=== PATIENT | male | born 1950 | race Caucasian/White ===

== ENCOUNTER → 2018-02-23 | Outpatient (CLI) | payer BC ==
[~2018-02-23] MED LIST: VICODIN 500 MG-1 TAB PO
== END | disposition home or self-care (01) ==
LOC: RAD 18:32
DX: M99.09 Segmental and somatic dysfunction of abdomen and other regions (principal); R20.0 Anesthesia of skin; N20.0 Calculus of kidney; M47.896 Other spondylosis, lumbar region; M25.78 Osteophyte, vertebrae; M12.88 Other specific arthropathies, not elsewhere classified, other specified site; M81.0 Age-related osteoporosis without current pathological fracture

== ENCOUNTER → 2022-07-12 | Outpatient (CLI) | payer BC | LOC: LAB 09:44 | PROVIDERS: ATTEND Family Medicine | DX: M79.10 Myalgia, unspecified site (principal) ==

== ENCOUNTER → 2023-08-24 | Outpatient (CLI) | payer BC | END | disposition home or self-care (01) | LOC: LAB 17:03 | PROVIDERS: ATTEND Psychiatry & Neurology Clinical Neurophysiology | DX: R20.2 Paresthesia of skin (principal) ==